=== PATIENT | female | born 1965 | race Caucasian/White ===

== ENCOUNTER 2019-11-15 06:00 | Inpatient (IN) | payer MEDICAID ==
[~2019-11-15] VITALS: Ht 165.1 cm; Wt 86.5 kg
[~2019-11-15 06:00] MED LIST: DIVA-78 PO; MULT-29 PO; RISP2 PO
[2019-11-15] MEDS ORDERED: LORazepam 2 MG TABLET PO PRN (08:45)
[2019-11-15] MEDS ORDERED: HALOPERIDOL 5 MG TABLET PO PRN ×2 (08:45→09:15)
[2019-11-15] MEDS ORDERED: ZOLPIDEM TARTRATE 10 MG TABLET PO PRN ×2 (08:45→09:15)
[2019-11-15 09:19] VITALS: BP 108/72
[2019-11-15] MEDS ORDERED: QUET200T PO (10:06)
[2019-11-15] MEDS ORDERED: LEVO100 PO (10:07)
[2019-11-15] MEDS ORDERED: LISI-658 PO (10:07)
[2019-11-15] MEDS ORDERED: NAPR-1025 PO (10:08)
[2019-11-15] MEDS ORDERED: MULT-29 PO (11:27)
[2019-11-15] MEDS: DIVALPROEX SODIUM 500 MG DR TABLET PO SCH ×2 (11:30→16:50)
[2019-11-15] MEDS ORDERED: ALBUTEROL SULFATE HFA 90 MCG/PUFF 8 GM INHALER IH PRN (16:00)
[2019-11-15] MEDS: LORazepam 2 MG TABLET PO PRN ×2 (16:25→20:26)
[2019-11-15] MEDS ORDERED: DIVALPROEX SODIUM 500 MG DR TABLET PO SCH (17:00)
[2019-11-15 17:47] VITALS: BP 112/89
[2019-11-15 20:25] VITALS: BP 113/79
[2019-11-15] MEDS: QUEtiapine FUMARATE 200 MG TABLET PO SCH (21:32)
[2019-11-16 04:00] VITALS: BP 124/86
[2019-11-16 07:38] LABS: BASOPHILS % (AUTO) 0.4 % (0.0-2.0); EOSINOPHILS % (AUTO) 3.3 % (1.0-6.0); HEMATOCRIT 31.9 % (36-46); HEMOGLOBIN 10.9 g/dL (12.0-16.0); LYMPHOCYTES # (AUTO) 1.2 K/uL (1.0-4.8); LYMPHOCYTES % (AUTO) 29.8 % (22.0-44.0); MEAN CORPUSCULAR HEMOGLOBIN 29.6 pg (26.0-34.0); MEAN CORPUSCULAR HGB CONC 34.2 G/dL (31.0-37.0); MEAN CORPUSCULAR VOLUME 87 fL (80-100); MONOCYTES # (AUTO) 0.3 K/uL (0.1-1.0); NEUTROPHILS # (AUTO) 2.3 K/uL (1.8-7.7); NEUTROPHILS % (AUTO) 58.5 % (40.0-70.0); PLATELET COUNT (AUTO) 168 K/uL (150-450); RED BLOOD CELL COUNT(AUTO) 3.69 MIL/uL (4.00-5.20); RED CELL DISTRIBUTION WIDTH 13.6 % (11.5-14.5)
[2019-11-16 07:55] LABS: ALANINE AMINOTRANSFERASE 14 U/L (12-78); ALBUMIN 2.9 g/dL (3.4-5.0); ALKALINE PHOSPHATASE 91 U/L (46-116); ANION GAP 8 mmol/L (8-16); ASPARTATE AMINOTRANSFERASE 6 U/L (15-37); BILIRUBIN,TOTAL 0.1 mg/dL (0.1-1.0); CARBON DIOXIDE 28 mmol/L (22-29); CHLORIDE 103 mmol/L (98-107); CHOLESTEROL 133 mg/dL (131-200); FREE T4 (FREE THYROXINE) 0.76 ng/dL (0.76-1.46); GLOMERULAR FILTR. RATE CALC > 60 mL/min (>60); GLUCOSE,RANDOM 92 mg/dL (70-110); HDL CHOLESTEROL 33 mg/dL (40-60); LDL CHOL (CALC.) 71 mg/dL (0-130); SODIUM SERUM 139 mmol/L (136-145); THYROID STIMULATING HORMONE 4.81 uIU/mL (0.36-3.74); TOTAL PROTEIN, SERUM 6.1 g/dL (6.4-8.2); TRIGLYCERIDES 144 mg/dL (15-150); UREA NITROGEN, BLOOD 15 mg/dL (7-18)
[2019-11-16 08:17] VITALS: BP 118/73
[2019-11-16] MEDS: LISINOPRIL 20 MG TABLET PO SCH (08:56)
[2019-11-16] MEDS: HYDROCHLOROTHIAZIDE 25 MG TABLET PO SCH (08:56)
[2019-11-16] MEDS: DIVALPROEX SODIUM 500 MG DR TABLET PO SCH ×2 (08:56→17:02)
[2019-11-16] MEDS: FLUTICASONE/VILANTEROL 200-25 MCG/INH INHALER [14] IH SCH (09:01)
[2019-11-16] MEDS: LORazepam 2 MG TABLET PO PRN ×2 (09:50→17:02)
[2019-11-16] MEDS: BuPROPion HCL XL 150 MG ER TABLET PO SCH (09:57)
[2019-11-16 16:26] VITALS: BP 103/73
[2019-11-16] MEDS: QUEtiapine FUMARATE 200 MG TABLET PO SCH (20:23)
[2019-11-17 01:43] VITALS: BP 107/68
[2019-11-17 08:37] VITALS: BP 129/80
[2019-11-17] MEDS: LISINOPRIL 20 MG TABLET PO SCH (08:46)
[2019-11-17] MEDS: FLUTICASONE/VILANTEROL 200-25 MCG/INH INHALER [14] IH SCH (08:46)
[2019-11-17] MEDS: BuPROPion HCL XL 150 MG ER TABLET PO SCH (08:46)
[2019-11-17] MEDS: DIVALPROEX SODIUM 500 MG DR TABLET PO SCH (08:46)
[2019-11-17] MEDS: HYDROCHLOROTHIAZIDE 25 MG TABLET PO SCH (08:46)
[2019-11-17] MEDS: LORazepam 2 MG TABLET PO PRN (09:43)
[2019-11-17] MEDS ORDERED: BUPR-93 PO (11:08)
[2019-11-17] MEDS ORDERED: FLUT1BLS IH (11:08)
== END 2019-11-17 15:09 | disposition home or self-care (01) | DRG 750 ==
LOC: B3A 07:34
PROVIDERS: ADMIT Psychiatry & Neurology Psychiatry; ATTEND Psychiatry & Neurology Psychiatry
DX: F25.9 Schizoaffective disorder, unspecified (principal); N17.9 Acute kidney failure, unspecified; R45.851 Suicidal ideations; D64.9 Anemia, unspecified; E03.9 Hypothyroidism, unspecified; F10.10 Alcohol abuse, uncomplicated; F32.9 Major depressive disorder, single episode, unspecified; I10 Essential (primary) hypertension; J44.9 Chronic obstructive pulmonary disease, unspecified; M19.90 Unspecified osteoarthritis, unspecified site
CPT/HCPCS: 84439; 84443

== ENCOUNTER 2021-02-14 13:43 | Emergency (ER) | payer MEDICAID ==
[~2021-02-14] VITALS: Ht 165.1 cm; Wt 80.0 kg
[~2021-02-14 13:43] MED LIST changes: +BUPR-93 PO; +DIVA-112 PO; -DIVA-78 PO; +FLUT1BLS IH; +LISI-658 PO; -MULT-29 PO; +QUET200T PO; -RISP2 PO
[2021-02-14 13:47] VITALS: BP 128/70
[2021-02-14] MEDS ORDERED: KETOROLAC TROMETHAMINE 30 MG/ML VIAL IM ONE (16:15)
== END 2021-02-14 17:05 | disposition home or self-care (01) ==
LOC: EMS 13:52
DX: S52.591A Other fractures of lower end of right radius, initial encounter for closed fracture (principal); F17.210 Nicotine dependence, cigarettes, uncomplicated; F12.90 Cannabis use, unspecified, uncomplicated; Z79.899 Other long term (current) drug therapy; Z88.6 Allergy status to analgesic agent; W18.39XA Other fall on same level, initial encounter; Y93.01 Activity, walking, marching and hiking; Y92.89 Other specified places as the place of occurrence of the external cause; Y99.8 Other external cause status
CPT/HCPCS: 29125; 73110; 73130; 96372; 99284; J1885

== ENCOUNTER 2024-07-09 13:15 | Emergency (ER) | payer MEDICAID ==
[~2024-07-09] VITALS: Ht 162.6 cm; Wt 68.2 kg
[~2024-07-09 13:15] MED LIST changes: +BUPR-514 PO; -BUPR-93 PO; -LISI-658 PO
[2024-07-09 13:26] VITALS: BP 145/56; PULSE 86; RESP 18; TEMP 98.5; O2SAT 100
[2024-07-09] MEDS ORDERED: DOXY-354 PO (16:04)
[2024-07-09] MEDS: DOXYCYCLINE HYCLATE 100 MG TABLET PO ONE (16:05)
== END 2024-07-09 16:36 | disposition home or self-care (01) ==
LOC: EMS 13:15
DX: L02.512 Cutaneous abscess of left hand (principal); F31.9 Bipolar disorder, unspecified; F20.9 Schizophrenia, unspecified; F17.210 Nicotine dependence, cigarettes, uncomplicated; F12.90 Cannabis use, unspecified, uncomplicated; Z98.890 Other specified postprocedural states
CPT/HCPCS: 26010; 99284; 99406; Z7502; Z7610